=== PATIENT | female | born 1960 | race Two or more races ===

== ENCOUNTER 2025-03-17 14:00 | Inpatient (IN) | payer OTHER, MEDICAID ==
[~2025-03-17] VITALS: Ht 156.2 cm; Wt 80.5 kg
--- NOTE | 2025-03-17 14:35 | ED.PDOC ---
HPI Comments 64 y/o F, with PMHx of HTN presents to the ED for CC of chest pain. Patient states, she has been experiencing non-radiating substernal chest pain with associated palpitations since 0645 this morning (03/17/25). Patient reports, that she just had a parathyroidectomy on 03/09/25 and is unsure if symptoms maybe related. Patient denies headache, dizziness, shortness of breath, cough, nausea, or vomiting. No other symptoms or modifying factors present at this time. Chief Complaint: Chest Pain Time Seen by MD: 14:25 Reviewed Notes: Nurses Notes, Medications, Allergies Allergies: Coded Allergies: NO KNOWN ALLERGIES (Unverified , 03/17/25) Information Source: Patient Mode of Arrival: Ambulatory Severity: Moderate Timing: Hours Duration: Since onset Prehospital treatment: None Location: Substernal Radiation: No Radiation Onset: At Rest Cardiac Risk Factors: HTN PE Risk Factors: None History of: None Modifying Factors: Nothing Associated Signs and Symptoms: Palpitations Past Medical History PAST MEDICAL HISTORY: HTN Surgical History: Hysterectomy (partial) PERITONEAL DIALYSIS REGISTERED NURSE History: Denies all PERITONEAL DIALYSIS REGISTERED NURSE Hx Family History Family History: Unknown Social History Smoker: Non-Smoker Alcohol: Denies ETOH Use Drugs: Denies Drug Use Lives In: Home Constitutional: denies: chills, diaphoresis, fatigue, fever, malaise, sweats, weakness, others EENTM: denies: blurred vision, double vision, ear bleeding, ear discharge, ear drainage, ear pain, ear ringing, eye pain, eye redness, hearing loss, mouth pain, mouth swelling, nasal discharge, nose bleeding, nose congestion, nose pain, photophobia, tearing, throat pain, throat swelling, voice changes, others Respiratory: denies: cough, hemoptysis, orthopnea, SOB at rest, shortness of breath, SOB with excertion, stridor, wheezing, others Cardiovascular: reports: chest pain, palpitations; denies: dizzy spells, diaphoresis, Dyspnea on exertion, edema, irregular heart beat, left arm pain, lightheadedness, PND, syncope, others Gastrointestinal: denies: abdomen distended, abdominal pain, blood streaked ld wels, constipated, diarrhea, dysphagia, difficulty swallowing, hematemesis, melena, nausea, poor appetite, poor fluid intake, rectal bleeding, rectal pain, vomiting, others Genitourinary: denies: abnormal vagina bleeding, burning, dyspareunia, dysuria, flank pain, frequency, hematuria, incontinence, pain, , vagina discharge, urgency, others Neurological: denies: dizziness, fainting, headache, left sided numbness, left sided weakness, numbness, paresthesia, pre-existing deficit, right sided numbness, right sided weakness, seizure, speech problems, tingling, tremors, weakness, others Musculoskeletal: denies: back pain, gout, joint pain, joint swelling, muscle pain, muscle stiffness, neck pain, others Integumetry: denies: bruises, change in color, change in hair/nails, dryness, laceration, lesions, lumps, rash, wounds, others Allergic/Immunocompromised: denies: Difficulty Healing, Frequent Infections, Hives, Itching, others Hematologic/Lymphatic: denies: anemia, blood clots, easy bleeding, easy bruis ing, swollen glands, others Endocrine: denies: excessive hunger, excessive sweating, excessive thirst, exc essive urination, flushing, intolerance to cold, intolerance to heat, unexplained weight gain, unexplained weight loss, others Psychiatric: denies: anxiety, bipolar disorder, depression, hopeless, panic disorder, schizophrenia, sleepless, suicidal, others All Other Systems: Reviewed and Negative Physical Exam General Appearance: Moderate Distress HEENT: Normal ENT Inspection, Pharynx Normal, TMs Normal Neck: Full Range of Motion, Non-Tender, Normal, Normal Inspection Respiratory: Chest Non-Tender, Lungs Clear, No Accessory Muscle Use, No Respiratory Distress, Normal Breath Sounds Cardiovascular: No Edema, No JVD, No Murmur, No Gallop, Normal Peripheral Pulses, Regular Rate/Rhythm Breast Exam: Deferred Gastrointestinal: No Organomegaly, Non Tender, No Pulsatile Mass, Normal Bowel Sounds, Soft Genitalia: Deferred Pelvic: Deferred Rectal: Deferred Extremities: No calf tenderness, Normal capillary refill, Normal inspection, Normal range of motion, Non-tender, No pedal edema Musculoskeletal : Apperance: Normal Neurologic: Alert, last model maker II-XII nml as Tested, No Motor Deficits, Normal Affect, Normal Mood, No Sensory Deficits Cerebellar Function: Normal Reflexes: Normal Skin: Dry, Normal Color, Warm Peripheral Pulses: 3+ Radial (R), 3+ Radial (L) Lymphatic: No Adenopathy EKG EKG : Pulse Rate (adult): 70 [place]: Normal Cardiac Rhythm: NSR Block: None Hypertrophy: None ST: Normal Was a procedure done? Was a procedure done?: No CP Differential Dx Differential Diagnosis: A-fib, A-Flutter, Angina, Anxiety / Panic Attack, Atrial Dysrhythmia, Electrolyte Disorder Differential Diagnosis: HTN Essential, HTN Accelerated Differential Diagnosis: Angina, Chest Wall Pain, Costochondritis X-Ray, Labs, Meds, VS Vital Signs Date Time Temp Pulse Resp B/P (MAP) Pulse Ox O2 Delivery O2 Flow Rate FiO2 03/17/25 14:42 70 03/17/25 14:09 70 03/17/25 14:01 98.8 80 16 127/73 97 98.8 Lab Test 03/17/25 14:32 Range/Units White Blood Count 10.2 4.4-10.8 10^3/uL Red Blood Count 4.43 4.0-5.20 10^6/uL Hemoglobin 13.9 12.2-16.2 g/dL Hematocrit 40.5 36.0-46.0 % Mean Corpuscular Volume 91.4 80.0-100.0 fL Mean Corpuscular Hemoglobin 31.3 28.0-32.0 pg Mean Corpuscular Hemoglobin Concent 34.3 32.0-36.0 g/dL Red Cell Distribution Width 12.9 11.8-14.3 % Platelet Count 290 140-450 10^3/uL Mean Platelet Volume 7.7 6.9-10.8 fL Neutrophils (%) (Auto) 76.8 37.0-80.0 % Lymphocytes (%) (Auto) 16.9 10.0-50.0 % Monocytes (%) (Auto) 3.4 0.0-12.0 % Eosinophils (%) (Auto) 2.0 0.0-7.0 % Basophils (%) (Auto) 0.9 0.0-2.0 % Neutrophils # (Auto) 7.8 1.6-8.6 10 ^3/uL Lymphocytes # (Auto) 1.7 0.4-5.4 10 ^3/uL Monocytes # (Auto) 0.3 0-1.3 10 ^3/uL Eosinophils # (Auto) 0.2 0-0.8 10 ^3/uL Basophils # (Auto) 0.1 0-0.2 10 ^3/uL Nucleated Red Blood Cells 0.0 % Sodium Level 141 136-145 mmol/L Potassium Level 3.9 3.5-5.1 mmol/L Chloride Level 105 98-107 mmol/L Carbon Dioxide Level 27 20-31 mmol/L Anion Gap 9 5-15 Blood Urea Nitrogen 14 9-23 mg/dL Creatinine 0.58 0.550-1.02 mg/dL Glomerular Filtration Rate Calc 100 >90 mL/min BUN/Creatinine Ratio 24.1 H 10.0-20.0 Serum Glucose 90 74-106 mg/dL Calcium Level 9.6 8.7-10.4 mg/dL Troponin I High Sensitivity < 3 L </=34 ng/L Patient alert. Complaining of chest pain. Vitals stable. Answering questions. Cardiac marker within normal limits. EKG reviewed does not show any acute changes. WBC within normal limits. Hemoglobin within normal limits. Was given aspirin. Was given nitro. Explained to the patient. Continue monitoring. Continues to have chest pain. Possibly need stress test. Time of 1ST Reevaluation: 14:55 Reevaluation 1ST: Unchanged Patient Education/Counseling: Diagnosis, Treatment Family Education/Counseling: No Family Present SEPSIS Sepsis Screen Date sepsis recognized/suspect: Mar 17, 2025 Time Sepsis recognized/suspect: 1402 Recent Procedure: No On Antibiotic Therapy: No Respiratory Rate >20: No Heart Rate >90: No Temp<36 C (96.8 F) or >38.3 C: No SBP <90 or MAP <65 mmHG: No New Acute Mental Status Change: No Is the patient on CPAP, BIPAP,: No Physician Orders Electrocardigram (03/17/25 14:04) Troponin-I Hs (03/17/25 15:04) Troponin-I Hs (03/17/25 17:04) Electrocardigram (03/17/25 17:04) Urinalysis (03/17/25 14:22) Vital Signs Date Time Temp Pulse Resp B/P (MAP) Pulse Ox O2 Delivery O2 Flow Rate FiO2 03/17/25 14:42 70 03/17/25 14:09 70 03/17/25 14:01 98.8 80 16 127/73 97 98.8 Laboratory Tests Test 03/17/25 14:32 White Blood Count 10.2 10^3/uL (4.4-10.8) Departure 1 Departure Time of Disposition: 15:32 Impression: Primary Impression: Chest pain of unknown etiology Disposition: ADMITTED INPATIENT Admit to: Med Surg Condition: Guarded Critical Care Note Critical Care Time?: No Stability Stability form required: No Heart Score Heart Score: Heart Score Response (Comments) Value History Slightly Suspicious 0 EKG Normal 0 Age >65 2 Risk Factors >3 or Hx ASHD 2 Troponin Normal limit 0 Total 4 I personally scribed for JERICHO MILLAN MD ([email or web address]) on 03/17/25 at 14:35. Electronically submitted by Cindy Vivar ([employer]). I personally scribed for JERICHO MILLAN MD ([email or web address]) on 03/17/25 at 14:40. Electronically submitted by Cindy Vivar ([employer]). I personally scribed for JERICHO MILLAN MD ([email or web address]) on 03/17/25 at 14:42. Electronically submitted by Cindy Vivar ([employer]). JERICHO MILLAN MD Mar 17, 2025 14:35
[2025-03-17 14:49] LABS: Hematocrit 40.5 % (36.0-46.0); Hemoglobin 13.9 g/dL (12.2-16.2); Mean Corpuscular Hemoglobin 31.3 pg (28.0-32.0); Mean Corpuscular Volume 91.4 fL (80.0-100.0); Nucleated Red Blood Cells % 0.0 %
[2025-03-17 14:55] LABS: Chloride 105 mmol/L (98-107); Potassium 3.9 mmol/L (3.5-5.1); Sodium 141 mmol/L (136-145)
[2025-03-17 14:56] LABS: Anion Gap 9 (5-15); Calcium 9.6 mg/dL (8.7-10.4); Carbon Dioxide 27 mmol/L (20-31)
[2025-03-17 15:01] LABS: BUN/Creatinine Ratio 24.1 (10.0-20.0); Blood Urea Nitrogen 14 mg/dL (9-23); Glucose 90 mg/dL (74-106)
[2025-03-17] MEDS: NITROGLYCERIN 0.4 MG SL TAB SL ONE (17:46)
[2025-03-17] MEDS ORDERED: NITROGLYCERIN 0.4 MG SL TAB SL PRN (21:45)
--- NOTE | 2025-03-17 21:56 | DVHHPRES ---
History of Present Illness Resident Creating Document: ZOIE GOMEZ RESIDENT History of Present Illness Laurel Whitney is a 64 yo female, with past medical history of HTN and hypoparathyroidism. The patient presented to the ED with chief complaint of 1 day of chest pain, substernal, pressure and stabbing like, 5-6/10, radiating to the left shoulder, associated with dizziness and palpitations. This is the first time episode. The patient reports, that she had a parathyroidectomy surgery on 03/04. Patient denies headache, shortness of breath, cough, nausea, vomiting, leg swelling or other symptoms. In the ED patient was given aspirin and nitro with improvement of chest pain. Patient will be admitted for further evaluation. Cardiovascular: HTN Musculoskeletal: Other (Osteoporosis) Past Surgical History: , Other (Parathyroidectomy ) Family History: CAD, CVA, Hyperlipidemia, Hypertension Smoke: No Drugs: None Lives: with Family Review of Systems Constitutional: No: Fever, Chills, Sweats, Weakness, Malaise, Other Eyes: No: Pain, Vision change, Conjunctivae inflammation, Eyelid inflammation, Other, Redness ENT: No: Ear pain, Ear discharge, Nose pain, Nose discharge, Nose congestion, Mouth pain, Mouth swelling, Throat pain, Throat swelling, Other Respiratory: No: Cough, Dry, Shortness of breath, SOB with excertion, Wheezing, Hemoptysis, Pleuritic Pain, Sputum, Wheezing, Other Cardiovascular: Chest Pain, Palpitations; No: Orthopnea, Paroxysmal Noc. Dyspnea, Edema, Lt Headedness, Other Gastrointestinal: No: Nausea, Vomiting, Abdominal Pain, Diarrhea, Constipation, Melena, Hematochezia, Other Genitourinary: No Dysuria, No Frequency, No Incontinence, No Hematuria, No Retention, No Other Musculoskeletal: No: other, neck pain, shoulder pain, arm pain, back pain, hand pain, leg pain, foot pain Skin: No: Rash, Lesions, Jaundice, Bruising, Other Neurological: No: Weakness, Numbness, Incoordination, Change in speech, Confusion, Seizures, Other Allergies: Coded Allergies: NO KNOWN ALLERGIES (Unverified , 03/17/25) Medications Current Medications Medications Dose Ordered Sig/Cece Route Start Time Stop Time Status Last Admin Dose Admin Morphine Sulfate 2 mg Q30M PRN IV 03/17/25 21:45 UNV Nitroglycerin 0.4 mg Q5MINP PRN SL 03/17/25 21:45 UNV Pantoprazole Sodium 40 mg DAILY PO 03/18/25 10:00 UNV Exam Vital Signs Vital Signs Date Time Temp Pulse Resp B/P (MAP) Pulse Ox O2 Delivery O2 Flow Rate FiO2 03/17/25 21:32 98.4 76 16 134/69 (90) 97 98.4 03/17/25 17:45 Room Air* 0 21 General Appearance: Alert, Oriented X3, Cooperative, No acute distress HEENT: Atraumatic, Mucous membr. moist/pink Respiratory: Clear to auscultation, Normal air movement Cardiovascular: Regular rate, Normal S1, Normal S2, No murmurs Abdominal: Normal bowel sounds, Soft, No tenderness, No hepatospenomegaly, No masses Extremities: No clubbing, No cyanosis, No edema, Normal pulses, No tenderness/swelling Skin: No rashes, No breakdown, No significant lesion Neuro: Normal gait, Normal speech, Strength at 5/5 X4 ext, Normal tone, Sensation intact Psych/Mental Status: Mental status NL, Mood NL Labs/Xrays Labs Test 03/17/25 15:47 03/17/25 14:32 Range/Units Troponin I High Sensitivity < 3 L </=34 ng/L White Blood Count 10.2 4.4-10.8 10^3/uL Red Blood Count 4.43 4.0-5.20 10^6/uL Hemoglobin 13.9 12.2-16.2 g/dL Hematocrit 40.5 36.0-46.0 % Mean Corpuscular Volume 91.4 80.0-100.0 fL Mean Corpuscular Hemoglobin 31.3 28.0-32.0 pg Mean Corpuscular Hemoglobin Concent 34.3 32.0-36.0 g/dL Red Cell Distribution Width 12.9 11.8-14.3 % Platelet Count 290 140-450 10^3/uL Mean Platelet Volume 7.7 6.9-10.8 fL Neutrophils (%) (Auto) 76.8 37.0-80.0 % Lymphocytes (%) (Auto) 16.9 10.0-50.0 % Monocytes (%) (Auto) 3.4 0.0-12.0 % Eosinophils (%) (Auto) 2.0 0.0-7.0 % Basophils (%) (Auto) 0.9 0.0-2.0 % Neutrophils # (Auto) 7.8 1.6-8.6 10 ^3/uL Lymphocytes # (Auto) 1.7 0.4-5.4 10 ^3/uL Monocytes # (Auto) 0.3 0-1.3 10 ^3/uL Eosinophils # (Auto) 0.2 0-0.8 10 ^3/uL Basophils # (Auto) 0.1 0-0.2 10 ^3/uL Nucleated Red Blood Cells 0.0 % Sodium Level 141 136-145 mmol/L Potassium Level 3.9 3.5-5.1 mmol/L Chloride Level 105 98-107 mmol/L Carbon Dioxide Level 27 20-31 mmol/L Anion Gap 9 5-15 Blood Urea Nitrogen 14 9-23 mg/dL Creatinine 0.58 0.550-1.02 mg/dL Glomerular Filtration Rate Calc 100 >90 mL/min BUN/Creatinine Ratio 24.1 H 10.0-20.0 Serum Glucose 90 74-106 mg/dL Calcium Level 9.6 8.7-10.4 mg/dL SEPSIS Sepsis Screen Date sepsis recognized/suspect: Mar 17, 2025 Time Sepsis recognized/suspect: 1744 Recent Procedure: Yes On Antibiotic Therapy: No Respiratory Rate >20: No Heart Rate >90: No Temp<36 C (96.8 F) or >38.3 C: No SBP <90 or MAP <65 mmHG: No New Acute Mental Status Change: No Is the patient on CPAP, BIPAP,: No Physician Orders Electrocardigram (03/17/25 14:04) Electrocardigram (03/17/25 17:04) Urinalysis (03/17/25 14:22) Admit (03/17/25 21:45) Code Status (03/17/25 21:45) Vital Signs .PER UNIT PROTOCOL (03/17/25 21:45) Review Orders With Adm.Md (03/17/25 21:45) Bedrest With Bathroom Privileg (03/17/25 21:45) Notify Md Of Changes From Base (03/17/25 21:45) Advance Directive (03/17/25 21:45) Echo 2d Mode Cardiac Dop (03/17/25 21:45) Patient Condition (03/17/25 21:45) Allergies (03/17/25 21:45) Morphine Sulfate Injection (03/17/25 21:45) Stat Ekg For Chest Pain (03/17/25 21:45) Notify Of Changes From Base (03/17/25 21:45) Fulfillment Associate For 24 Hours (03/17/25 21:45) Rhythm Strips Once Every Shift (03/17/25 21:45) Nitroglycerin Sublingual (Ntrostat Subli (03/17/25 21:45) Pantoprazole Tablet (Protonix Tablet) (03/18/25 10:00) Complete Blood Count (03/18/25 04:00) Comprehensive Metabolic Panel (03/18/25 04:00) * Cardiology Consult (03/17/25 21:45) Cardiac Diet-2gna,Lofat,Lochol (03/18/25 Breakfast) Drug Screen (03/17/25 21:45) Urinalysis (03/17/25 21:45) B-Type Natriuretic Peptide (03/17/25 21:45) Thyroid Stimulating Hormone (03/17/25 21:45) Vital Signs Date Time Temp Pulse Resp B/P (MAP) Pulse Ox O2 Delivery O2 Flow Rate FiO2 03/17/25 21:32 98.4 76 16 134/69 (90) 97 98.4 03/17/25 17:46 135/91 03/17/25 17:45 98.3 81 18 135/91 (106) 98 98.3 03/17/25 17:45 Room Air* 0 21 03/17/25 14:42 70 03/17/25 14:09 70 03/17/25 14:01 98.8 80 16 127/73 97 98.8 Laboratory Tests Test 03/17/25 14:32 White Blood Count 10.2 10^3/uL (4.4-10.8) Medications Medications Dose Ordered Sig/Cece Route Start Time Stop Time Status Last Admin Dose Admin Aspirin 325 mg ONCE ONCE PO 03/17/25 14:30 03/17/25 14:31 DC 03/17/25 17:46 325 MG Nitroglycerin 0.4 mg ONCE ONCE SL 03/17/25 14:30 03/17/25 14:31 DC 03/17/25 17:46 0.4 MG Assessment/Plan Assessment/Plan #Chest pain, rule out ACS #Rule out paroxysmal A-Fib Aspirin 325mg po Nitroglycerin 04.mg Morphine 2mg IV EKG BNP Troponins ECHO Cardiology consult #Hypoparathyroidism #Status post parathyroidectomy Tums Vit D #Obesity Life style modification counseling Cardiac diet DVT prophylaxis-Demabulanting patient PUD prophylaxis Protonic Goals of care discussed with the patient > 35 min. Discussed plan of care with Dr. Felix Code status: Full code PCP: Dr. Es Ovalle Plan discussed with: Patient, The patients agrees with the admission plan. Plan discussed with: Patient My Orders Orders - ZOIE GOMEZ RESIDENT Procedure Category Date Status Time Admit ADMIT 03/17/25 Transmitted 21:45 Code Status CODE 03/17/25 Transmitted 21:45 Vital Signs [facility] 03/17/25 In Process 21:45 Review Orders With [facility] 03/17/25 In Process Adm.Md 21:45 Bedrest With Bathroom [facility] 03/17/25 In Process Privileg 21:45 Notify Md Of Changes [facility] 03/17/25 In Process From Base 21:45 Advance Directive [facility] 03/17/25 In Process 21:45 Echo 2d Mode Cardiac US 03/17/25 Logged DOP 21:45 Patient Condition ORDERS 03/17/25 Transmitted 21:45 Allergies [facility] 03/17/25 In Process 21:45 Morphine Sulfate [facility] 03/17/25 Logged Injection 21:45 Stat Ekg For Chest [facility] 03/17/25 In Process Pain 21:45 Notify Of Changes [facility] 03/17/25 In Process From Base 21:45 Fulfillment Associate For [facility] 03/17/25 In Process 24 Hours 21:45 Rhythm Strips Once [facility] 03/17/25 In Process Every Shift 21:45 Nitroglycerin PHA 03/17/25 Logged Sublingual (Ntrostat 21:45 Pantoprazole Tablet PHA 03/18/25 Logged (Protonix Tablet) 10:00 Complete Blood Count LAB 03/18/25 Verified 04:00 Comprehensive LAB 03/18/25 Verified Metabolic Panel 04:00 * Cardiology Consult CONS 03/17/25 Transmitted 21:45 Cardiac DIET 03/18/25 Transmitted Diet-2gna,Lofat,Lochol Breakfast Drug Screen LAB 03/17/25 Logged 21:45 Urinalysis LAB 03/17/25 Logged 21:45 B-Type Natriuretic LAB 03/17/25 Logged Peptide 21:45 Thyroid Stimulating LAB 03/17/25 Logged Hormone 21:45 Common Visit Codes: 64405-[id number] INP/OBS CARE (HIGH) Secondary Visit Codes: 04739-[id number] CARE PLAN 30 MINUTES ZOIE GOMEZ RESIDENT Mar 17, 2025 21:56
[2025-03-18] MEDS ORDERED: CALC0.5C PO (03:06)
[2025-03-18] MEDS ORDERED: CHOL20002 PO (03:06)
[2025-03-18] MEDS ORDERED: LOSA-535 PO (03:06)
[2025-03-18 05:10] LABS: Hematocrit 38.8 % (36.0-46.0); Hemoglobin 13.2 g/dL (12.2-16.2); Mean Corpuscular Hemoglobin 30.9 pg (28.0-32.0); Mean Corpuscular Volume 91.1 fL (80.0-100.0); Nucleated Red Blood Cells % 0.0 %
[2025-03-18 05:28] LABS: Alanine Aminotransferase 16 U/L (7-40); Albumin 4.5 g/dL (3.2-4.8); Alkaline Phosphatase 99 U/L (46-116); Anion Gap 12 (5-15); BUN/Creatinine Ratio 37.3 (10.0-20.0); Blood Urea Nitrogen 19 mg/dL (9-23); Calcium 8.9 mg/dL (8.7-10.4); Carbon Dioxide 24 mmol/L (20-31); Chloride 106 mmol/L (98-107); Glucose 78 mg/dL (74-106); Sodium 142 mmol/L (136-145); Total Protein 6.8 g/dL (5.7-8.2)
[2025-03-18 05:29] LABS: Bilirubin, Total 0.4 mg/dL (0.2-1.0)
[2025-03-18 05:31] LABS: Potassium 3.4 mmol/L (3.5-5.1)
[2025-03-18] MEDS: POTASSIUM EFFERVESENT TAB 25 MEQ GT ONE (05:56)
[2025-03-18 06:17] VITALS: BP 122/66; PULSE 78; RESP 18; TEMP 98; O2SAT 98
--- NOTE | 2025-03-18 09:04 | DVH ---
EXAM: XY CHEST PORTABLE Indication: chest pain Technique: Single frontal view of the chest was obtained Comparison: None FINDINGS: Lines and Tubes: None Lungs: No focal consolidation. Pleura: No effusion. No pneumothorax. Cardiomediastinal contours: Unremarkable Bones: No acute osseous abnormality. IMPRESSION: No acute cardiopulmonary disease.
[2025-03-18] MEDS: CALCIUM CARB 500 MG CHEW TAB PO SCH (10:00)
[2025-03-18] MEDS: PANTOPRAZOLE 40 MG TAB PO SCH (10:00)
--- NOTE | 2025-03-18 11:09 | DVHINCON2 ---
Date Seen: Mar 18, 2025 Referring Physician MD Vernon Reason for Consultation Palpitations, chest pain History of Present Illness This is a pleasant 64-year-old female who presented to the emergency room with a chief complaint of chest pain since 03/14/2025. Describes her chest pain as sub sternal, sharp in nature and as electrical shocks, intermittent, radiating to bilateral hands and feet as a numbing sensation, non-provoked, and associated with some palpitations. The patient underwent a recent partial parathyroidectomy at [facility] on 03/03/2025 for which she reported her symptoms to the surgeon who suggested to take calcium and magnesium and to attend the nearest ED in the setting of continuation of symptoms. She underwent a 12 lead electrocardiogram revealing a normal sinus rhythm without evidence of ST-T wave changes. Serial troponin levels are negative. Significant medical history includes hypertension, controlled diabetes mellitus after gastric sleeve surgery, status post partial parathyroidectomy, and obesity. Past Medical History Past medical history reviewed. No other significant than mentioned above. Past Surgical History Partial parathyroidectomy, 03/03/2025 Gastric sleeve Partial hysterectomy Family History: FH: glaucoma G8 MOTHER, , Age: 60 years and older FH: heart attack G8 MOTHER, , Age: 60 years and older FH: heart disease G8 MOTHER, , Age: 60 years and older FH: lung cancer G8 FATHER, , Age: 60 years and older FH: rheumatoid arthritis G8 MOTHER, , Age: 60 years and older Hypertension G8 MOTHER, , Age: 60 years and older Family History Family history reviewed. Reports mother with ME and no invasive cardiac interventions. Reports brother with congestive heart failure. Social History Denies the use of illicit drugs, alcohol, or tobacco use. Allergies: Coded Allergies: NO KNOWN ALLERGIES (Unverified , 03/17/25) Home Meds Reported Medications Calcitriol (Calcitriol) 0.5 Mcg Cap, 1 CAP PO DAILY 03/18/25 Cholecalciferol (VITAMIN D3) 2,000 Unit Tab, 1 CAP PO DAILY 03/18/25 Losartan Potassium (Losartan Potassium) 100 Mg Tab, 1 TAB PO DAILY 03/18/25 Home Meds Home medications reviewed. Current Medications Current Medications Medications (Trade) Dose Ordered Sig/Cece Route PRN Reason Start Time Stop Time Status Last Admin Morphine Sulfate 2 mg Q30M PRN IV FOR CHEST PAIN 03/17/25 21:45 Nitroglycerin (Ntrostat Sublingual) 0.4 mg Q5MINP PRN SL FOR CHEST PAIN 03/17/25 21:45 Pantoprazole Sodium (Protonix Tablet) 40 mg DAILY PO 03/18/25 10:00 03/18/25 10:00 Calcium Carbonate (Tums) 500 mg DAILY PO 03/18/25 10:00 03/18/25 10:00 Review of Systems Constitutional: No symptom reported Ears, Nose, & Throat: No symptom reported Eyes: No symptom reported Neurological: No symptoms reported Pulmonary/Respiratory: No symptom reported Cardiovascular: Chest pain Gastrointestinal: No symptom reported Genitourinary: No symptom reported Musculoskeletal: No symptom reported Skin: No symptom reported Psychiatric: No symptom reported Endocrine: No symptom reported Hemotologic/Lymphatic: No symptom reported Vital Signs Vital Signs Date Time Temp Pulse Resp B/P (MAP) Pulse Ox O2 Delivery O2 Flow Rate FiO2 03/18/25 06:17 98.0 78 18 122/66 (84) 98 98.0 03/17/25 17:45 Room Air* 0 21 Physical Exam General Appearance: Cooperative. Well developed. Obese. In no acute distress Head Exam: Normal inspection Neck Exam: Normal inspection. Non-tender. Normal alignment Pulmonary/Respiratory: Chest non-tender. Clear bilateral breath sounds Cardiovascular/Chest: Regular rate and rhythm. S1, S2. NSR. No murmurs. No JVD. Peripheral Pulses: 2+ Radial (R). 2+ Radial (L). 2+ Pedal (R). 2+ Pedal (L) Abdominal Exam: Normal bowel sounds. Soft. Nontender. No hepatospenomegaly. No masses Ankle Exam: Negative ankle edema Lower extremities: Negative lower extremity edema Neuro/Mental Status: A&O x4. Coherent Thoughts/Psych: Normal thought pattern. Anxious Appearance: In no acute distress Skin Exam: Normal inspection. Normal color. Warm. Dry Labs/Diagnostic Data Labs Test 03/18/25 04:06 03/17/25 15:47 03/17/25 14:32 Range/Units White Blood Count 8.6 4.4-10.8 10^3/uL Red Blood Count 4.26 4.0-5.20 10^6/uL Hemoglobin 13.2 12.2-16.2 g/dL Hematocrit 38.8 36.0-46.0 % Mean Corpuscular Volume 91.1 80.0-100.0 fL Mean Corpuscular Hemoglobin 30.9 28.0-32.0 pg Mean Corpuscular Hemoglobin Concent 33.9 32.0-36.0 g/dL Red Cell Distribution Width 13.1 11.8-14.3 % Platelet Count 224 140-450 10^3/uL Mean Platelet Volume 8.7 6.9-10.8 fL Neutrophils (%) (Auto) 66.5 37.0-80.0 % Lymphocytes (%) (Auto) 22.4 10.0-50.0 % Monocytes (%) (Auto) 6.7 0.0-12.0 % Eosinophils (%) (Auto) 3.9 0.0-7.0 % Basophils (%) (Auto) 0.5 0.0-2.0 % Neutrophils # (Auto) 5.7 1.6-8.6 10 ^3/uL Lymphocytes # (Auto) 1.9 0.4-5.4 10 ^3/uL Monocytes # (Auto) 0.6 0-1.3 10 ^3/uL Eosinophils # (Auto) 0.3 0-0.8 10 ^3/uL Basophils # (Auto) 0 0-0.2 10 ^3/uL Nucleated Red Blood Cells 0.0 % Sodium Level 142 136-145 mmol/L Potassium Level 3.4 L 3.5-5.1 mmol/L Chloride Level 106 98-107 mmol/L Carbon Dioxide Level 24 20-31 mmol/L Anion Gap 12 5-15 Blood Urea Nitrogen 19 9-23 mg/dL Creatinine 0.51 L 0.550-1.02 mg/dL Glomerular Filtration Rate Calc 103 >90 mL/min BUN/Creatinine Ratio 37.3 H 10.0-20.0 Serum Glucose 78 74-106 mg/dL Calcium Level 8.9 8.7-10.4 mg/dL Total Bilirubin 0.4 0.2-1.0 mg/dL Aspartate Amino Transferase (AST) 16 13-40 U/L Alanine Aminotransferase (ALT) 16 7-40 U/L Alkaline Phosphatase 99 46-116 U/L Total Protein 6.8 5.7-8.2 g/dL Albumin 4.5 3.2-4.8 g/dL Troponin I High Sensitivity < 3 L </=34 ng/L Thyroid Stimulating Hormone (TSH) 0.72 0.55-4.78 uIU/mL B-Type Natriuretic Peptide 24.19 0-100 pg/mL Assessment Noncardiac chest pain Rule out structural heart disease Palpitations rule out tachyarrhythmias Status post recent partial parathyroidectomy Hypertension Hypokalemia Obesity Plan/Recommendation (Dr. Romero) The patient presents with noncardiac chest pain, likely anxiety vs musculoskeletal. In the setting of an unremarkable echocardiogram, there is no further cardiac workup indicated at this time. Given reported palpitations, the patient could benefit from an outpatient event monitor and stress test if deemed necessary. Replete electrolytes as necessary. Kindly call if in need to re- consult. Thank you for allowing us to participate in this patient's care. Please call if you have any questions or concerns. This medical document was created using an electronic medical record system with voice recognition software and computerized dictation system. Although this document has been carefully reviewed, there might still be some phonetic and typographical errors. Occasional wrong-word or ``sound-alike substitutions may have occurred due to the inherent limitations of voice recognition software. These areas are purely typographical due to imperfections of the software programs and do not reflect any compromise in the patient's medical care. Please read the chart carefully and recognize, using context, where these substitutions have occurred. Plan discussed with: Patient, Other NYHA Physical activity limitations: NA Date of Service: Mar 18, 2025 Billing Provider: SUN RAJAN Cardiology Common Codes: [id number] INP/OBS CARE (High) SUN RAJAN Mar 18, 2025 11:09
[2025-03-18] MEDS: ACETAMINOPHEN 325 MG TAB PO ONE (13:57)
[2025-03-18 14:35] LABS: Triglycerides 54 mg/dL (< 150)
[2025-03-18 14:38] LABS: Cholesterol 155 mg/dL (< 200); HDL Cholesterol 66 mg/dL (40-59)
--- NOTE | 2025-03-18 14:43 | DVHPNRES ---
Progress Note Date Seen: Mar 18, 2025 Resident Creating Document: SANJU SHEPHERD Medical Necessity Reason Pt with a Central, PICC or Fol: No Subjective Review of Systems This is 64 years old female with past medical history of hypertension, well- controlled diabetes mellitus, hyperparathyroidism to the ED with her 1st episode of chest pain, described as substernal, shock, electrical shock pain, rate 5- 6/10, radiating to the left shoulder, both hands and feet with numbness. The pain associated with dizziness and palpitations. She denies headache, shortness of breath, cough, nausea, vomiting, leg swelling, or other symptoms. Following her surgery, she reports her symptoms to the surgeon, who advised calcium and magnesium supplement and ED evaluation if symptom persisted. In the ED, she was given aspirin and nitroglycerin with improvement in chest pain. She underwent EKG and shows normal sinus rhythm, troponin level was negative. Calcium level was 8.9. Past medical history: HTN, Osteoporosis, DM, hyperparathyroidism Past Surgical History: , Other (Parathyroidectomy ) Family History: CAD, CVA, Hyperlipidemia, Hypertension Smoke: No Drugs: None Lives: with Family Review of Systems Constitutional: No: Fever, Chills, Sweats, Weakness, Malaise, Other Eyes: No: Pain, Vision change, Conjunctivae inflammation, Eyelid inflammation, Other, Redness ENT: No: Ear pain, Ear discharge, Nose pain, Nose discharge, Nose congestion, Mouth pain, Mouth swelling, Throat pain, Throat swelling, Other Respiratory: No: Cough, Dry, Shortness of breath, SOB with excertion, Wheezing, Hemoptysis, Pleuritic Pain, Sputum, Wheezing, Other Cardiovascular: Chest Pain, Palpitations; No: Orthopnea, Paroxysmal Noc. Dyspnea, Edema, Lt Headedness, Other Gastrointestinal: No: Nausea, Vomiting, Abdominal Pain, Diarrhea, Constipation, Melena, Hematochezia, Other Genitourinary: No Dysuria, No Frequency, No Incontinence, No Hematuria, No Retention, No Other Musculoskeletal: No: other, neck pain, shoulder pain, arm pain, back pain, hand pain, leg pain, foot pain Skin: No: Rash, Lesions, Jaundice, Bruising, Other Neurological: No: Weakness, Numbness, Incoordination, Change in speech, Confusion, Seizures, Other Allergies: Coded Allergies: NO KNOWN ALLERGIES (Unverified , 03/17/25) Objective vital signs Vital Sign Date Time Temp Pulse Resp B/P (MAP) Pulse Ox O2 Delivery O2 Flow Rate FiO2 03/18/25 06:17 98.0 78 18 122/66 (84) 98 98.0 03/17/25 17:45 Room Air* 0 21 medications Current Medications Medications Dose Ordered Sig/Cece Route Start Time Stop Time Status Last Admin Dose Admin Morphine Sulfate 2 mg Q30M PRN IV 03/17/25 21:45 Nitroglycerin 0.4 mg Q5MINP PRN SL 03/17/25 21:45 Pantoprazole Sodium 40 mg DAILY PO 03/18/25 10:00 03/18/25 10:00 40 MG Calcium Carbonate 500 mg DAILY PO 03/18/25 10:00 03/18/25 10:00 500 MG Examination General Appearance: Alert, Oriented X3, Cooperative, No acute distress HEENT: Atraumatic, Mucous membr. moist/pink Respiratory: Clear to auscultation, Normal air movement Cardiovascular: Palpitation, Regular rate, Normal S1, Normal S2, No murmurs Abdominal: Normal bowel sounds, Soft, No tenderness, No hepatospenomegaly, No masses Extremities: No clubbing, No cyanosis, No edema, Normal pulses, No tenderness/swelling Skin: No rashes, No breakdown, No significant lesion Neuro: Normal gait, Normal speech, Strength at 5/5 X4 ext, Normal tone, Sensation intact Psych/Mental Status: Mental status NL, Mood NL laboratory and microbiology Laboratory Tests 03/18/25 04:06 Test 03/18/25 04:06 Range/Units Serum Glucose 78 74-106 mg/dL Labs and/or images reviewed: Labs reviewed by me, Image(s) reviewed by me (RN) Problem List/Assessment/Plan Problem List/Assessment/Plan # Chest pain r/o ACS -Morphine -Nitroglycerin -Lipid panel -BNP -Troponins -Chest X-Ray- No acute cardiopulmonary disease. # Hx of Hyperparathyroidism s/p parathyroidectomy february 2025 -PTH -monitor Ca2+ -Calcium carbonate # Palpiration r/o arrihythmia -EKG- Normal sinus rhythm. Normal ECG -Echocardiogram PUD prophylaxis: protonix 40mg Goals of care: Full code, discussed for >16 minutes on 03/18/25 Plan discussed with patient Plan discussed with Dr. Vazquez Plan discussed with: Patient, Other (RN) My Orders My Orders Orders - SANJU SHEPHERD RESIDENT Procedure Category Date Status Time Thyroid Stimulating LAB 03/18/25 In Process Hormone 13:34 Complete Blood Count LAB 03/19/25 Verified 04:00 Basic Metabolic Panel LAB 03/19/25 Verified 04:00 Date of Service: Mar 18, 2025 Billing Provider: KAYLA VAZQUEZ MD Common Visit Codes: [id number] INP/OBS CARE(HIGH) Secondary Visit Codes: [id number] CARE PLAN 30 MINUTES SANJU SHEPHERD RESIDENT Mar 18, 2025 14:43 ANUP STONER RESIDENT Mar 18, 2025 17:22 KAYLA VAZQUEZ MD Mar 20, 2025 22:22
[2025-03-18 16:50] VITALS: BP 106/66; PULSE 69; TEMP 98.3; O2SAT 98
[2025-03-18 21:00] VITALS: BP 101/60; PULSE 69; RESP 19; TEMP 98; O2SAT 99
[2025-03-18 21:20] VITALS: BP 135/85; PULSE 68; RESP 17; TEMP 97.8; O2SAT 98
[2025-03-18] MEDS: MORPHINE SULFATE INJ 2 MG/ml SYRG IV PRN (21:43)
[2025-03-18 23:16] VITALS: PULSE 68; RESP 17; O2SAT 98
[2025-03-19] VITALS (8 sets, daily range): BP systolic 106–128; BP diastolic 70–82; PULSE 71–90; RESP 16–19; TEMP 97.6–98.8; O2SAT 96–98
[2025-03-19 08:11] LABS: Hematocrit 35.6 % (36.0-46.0); Hemoglobin 12.3 g/dL (12.2-16.2); Mean Corpuscular Hemoglobin 31.5 pg (28.0-32.0); Mean Corpuscular Volume 91.1 fL (80.0-100.0); Nucleated Red Blood Cells % 0.0 %
[2025-03-19 08:16] LABS: Chloride 105 mmol/L (98-107); Potassium 3.8 mmol/L (3.5-5.1); Sodium 142 mmol/L (136-145)
[2025-03-19 08:17] LABS: Anion Gap 9 (5-15); Carbon Dioxide 28 mmol/L (20-31)
[2025-03-19 08:22] LABS: BUN/Creatinine Ratio 20.0 (10.0-20.0); Blood Urea Nitrogen 11 mg/dL (9-23); Glucose 94 mg/dL (74-106)
[2025-03-19 08:26] LABS: Calcium 8.4 mg/dL (8.7-10.4)
--- NOTE | 2025-03-19 12:07 | DVHSR ---
APPROVED REPORT EXAM: Two-dimensional and M-mode echocardiogram with Doppler and color Doppler. Blood Pressure: 109/71 mmHg INDICATION Atrial Fibrillation RISK FACTORS Height: 5'2", Weight: 165 DIMENSIONS LVDd4.0 (3.8-5.7cm)LA (2D)3.3 (1.9-4.0cm)Aortic Root2.8 (2.0-3.7cm) LVDs2.7 (2.5-4.0cm)LA (MM) (1.9-4.0cm)Aortic Cusp Exc1.8 (1.5-2.0cm) EF (%) 60.0 (55-70%)Rt. Atrium3.2 (1.9-4.0cm)Asc. Aorta cm IVSd1.1 (0.7-1.1cm)RV (D)3.1 (1.8-2.4cm) PWd1.1 (0.7-1.1cm) Mitral Valve MitralMitral Stenosis E wave0.57m/sMV Mean GR.mmHg A wave0.92m/sMV Peak GR.mmHg E/A ratio0.62D MVAcm2 DECEL [id number] 1/2 Timems Aortic Valve Aortic ValveAortic Stenosis V11.18m/Kathy Mean GR.5mmHg V21.68m/Kathy Peak GR.11mmHg LVOT Diameter2.0 (1.8-2.4cm)Doppler AVA2.21cm2 Pulmonic Valve V21.14m/s Tricuspid Valve TR Velocity2.48m/s [id number] Conclusion lvef 65% mild LVH grade 1 diastolic dysfunction
[2025-03-19] MEDS: CALCIUM CARB 500 MG CHEW TAB PO ONE (17:42)
[2025-03-19] MEDS: ACETAMINOPHEN 325 MG TAB PO PRN (17:42)
--- NOTE | 2025-03-19 18:04 | DVHPN2 ---
Subjective Overnight events noted. Patient has recently had a partial parathyroidectomy at [facility], currently on calcitriol and calcium supplements. Patient's initially presented to hospital with chest pain and palpitation. Changes from previous H/P or p: No Changes Eyes: No Pain, No Vision change, No Conjunctivae inflammation, No Eyelid inflammation, No Other, No Redness ENT: No Ear pain, No Ear discharge, No Nose pain, No Nose discharge, No Nose congestion, No Mouth pain, No Mouth swelling, No Throat pain, No Throat swelling, No Other Cardiovascular: Chest Pain, Palpitations; No Orthopnea, No Paroxysmal Noc. Dyspnea, No Edema, No Lt Headedness, No Other Respiratory: No Cough, No Dry, No Shortness of breath, No SOB with excertion, No Wheezing, No Hemoptysis, No Pleuritic Pain, No Sputum, No Other Gastrointestinal: No Nausea, No Vomiting, No Abdominal Pain, No Diarrhea, No Constipation, No Melena, No Hematochezia, No Other Genitourinary: No Dysuria, No Frequency, No Incontinence, No Hematuria, No Retention, No Other Musculoskeletal: No other, No neck pain, No shoulder pain, No arm pain, No back pain, No hand pain, No leg pain, No foot pain Skin: No Rash, No Lesions, No Jaundice, No Bruising, No Other Objective Vitals Vital Signs Date Time Temp Pulse Resp B/P (MAP) Pulse Ox O2 Delivery O2 Flow Rate FiO2 03/19/25 13:00 98.1 71 18 128/82 (97) 98 98.1 03/19/25 08:10 Room Air* 0 21 Intake/Output Intake and Output 03/19/25 07:00 Intake Total 450 ml Balance 450 ml Intake Oral 450 ml # Voids 1 Exam HEENT pupils are reactive Neck is supple CV is S1-S2 regular rate and rhythm Diminished breath sounds bases GI positive bowel sound Extremity no edema [employer]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 Medications Current Medications Medications Dose Ordered Sig/Cece Route Start Time Stop Time Status Last Admin Dose Admin Morphine Sulfate 2 mg Q30M PRN IV 03/17/25 21:45 03/18/25 21:43 2 MG Nitroglycerin 0.4 mg Q5MINP PRN SL 03/17/25 21:45 Pantoprazole Sodium 40 mg DAILY PO 03/18/25 10:00 03/19/25 10:28 40 MG Calcium Carbonate 1,000 mg DAILY PO 03/20/25 10:00 Acetaminophen 650 mg Q6HP PRN PO 03/19/25 16:00 03/19/25 17:42 650 MG Laboratory Results Laboratory Tests 03/19/25 07:00 Chemistry Test 03/19/25 07:00 Calcium Level 8.4 mg/dL (8.7-10.4) L Assessment/Plan Assessment/Plan 54-year-old female with a known history of hypertension, recent history of partial parathyroidectomy presented to the hospital with chest pain and palpitation found to have 1. Chest pain and palpitation likely noncardiac chest pain, outpatient event monitor as per Cardiology 2. Hypocalcemia with a recent history of partial parathyroidectomy, resume home dose of calcitriol as well as calcium supplements 3. Hypertension -recheck CMP, resume home medications -Discharge plan. Plan discussed with: Patient My Orders Orders - MORENITA CASTANON MD Procedure Category Date Status Time Calcium Carbonate PHA 03/20/25 In Process (Tums) 10:00 Acetaminophen Tablet PHA 03/19/25 In Process (Tylenol Tablet) 16:00 Comprehensive LAB 03/20/25 Verified Metabolic Panel 04:00 (Nf) Calcitriol PHA 03/20/25 Verified 10:00 (Nf) Cholecalciferol PHA 03/20/25 Verified (Vitamin D3) 10:00 (Nf) Losartan PHA 03/20/25 Verified Potassium 10:00 Date of Service: Mar 19, 2025 Billing Provider: MORENITA CASTANON MD Common Visit Codes: [id number] INP/OBS CARE(MOD) MORENITA CASTANON MD Mar 19, 2025 18:04
[2025-03-20 01:00] VITALS: BP 123/81; PULSE 76; RESP 18; TEMP 98; O2SAT 97
[2025-03-20 05:00] VITALS: BP 120/75; PULSE 71; RESP 18; TEMP 98; O2SAT 96
[2025-03-20 07:11] LABS: Alanine Aminotransferase 10 U/L (7-40); Albumin 4.4 g/dL (3.2-4.8); Alkaline Phosphatase 92 U/L (46-116); Anion Gap 7 (5-15); BUN/Creatinine Ratio 17.3 (10.0-20.0); Blood Urea Nitrogen 9 mg/dL (9-23); Carbon Dioxide 27 mmol/L (20-31); Chloride 106 mmol/L (98-107); Glucose 87 mg/dL (74-106); Potassium 3.5 mmol/L (3.5-5.1); Sodium 140 mmol/L (136-145); Total Protein 6.5 g/dL (5.7-8.2)
[2025-03-20 07:12] LABS: Bilirubin, Total 0.6 mg/dL (0.2-1.0)
[2025-03-20 07:13] LABS: Calcium 8.6 mg/dL (8.7-10.4)
[2025-03-20 08:00] VITALS: PULSE 67; PULSE 73; RESP 16; O2SAT 96
[2025-03-20 09:00] VITALS: BP 127/78; PULSE 71; RESP 16; TEMP 97.9; O2SAT 96
[2025-03-20] MEDS: LOSARTAN POTASSIUM 50 MG TAB PO SCH (10:00)
[2025-03-20] MEDS: CHOLECALCIFEROL (VITD3) 1,000UNIT=25mCg TAB PO SCH (10:06)
[2025-03-20] MEDS: CALCITRIOL 0.25 MCG CAP PO SCH (10:11)
[2025-03-20] MEDS: CALCIUM CARB 500 MG CHEW TAB PO SCH (10:12)
--- NOTE | 2025-03-20 12:41 | DVHDSRES ---
Discharge Summary Date of Admission Resident Creating Document: SANJU SHEPHERD RESIDENT Mar 17, 2025 at 21:45 Date of Discharge: Mar 20, 2025 Labs/Diagnostic Data: Laboratory Results Test 03/20/25 05:48 03/19/25 07:00 03/18/25 17:13 03/18/25 04:06 Sodium Level 140 mmol/L (136-145) Potassium Level 3.5 mmol/L (3.5-5.1) Chloride Level 106 mmol/L (98-107) Carbon Dioxide Level 27 mmol/L (20-31) Anion Gap 7 (5-15) Blood Urea Nitrogen 9 mg/dL (9-23) Creatinine 0.52 mg/dL (0.550-1.02) Glomerular Filtration Rate Calc 102 mL/min (>90) BUN/Creatinine Ratio 17.3 (10.0-20.0) Serum Glucose 87 mg/dL (74-106) Calcium Level 8.6 mg/dL (8.7-10.4) Total Bilirubin 0.6 mg/dL (0.2-1.0) Aspartate Amino Transferase (AST) 13 U/L (13-40) Alanine Aminotransferase (ALT) 10 U/L (7-40) Alkaline Phosphatase 92 U/L (46-116) Total Protein 6.5 g/dL (5.7-8.2) Albumin 4.4 g/dL (3.2-4.8) White Blood Count 8.0 10^3/uL (4.4-10.8) Red Blood Count 3.90 10^6/uL (4.0-5.20) Hemoglobin 12.3 g/dL (12.2-16.2) Hematocrit 35.6 % (36.0-46.0) Mean Corpuscular Volume 91.1 fL (80.0-100.0) Mean Corpuscular Hemoglobin 31.5 pg (28.0-32.0) Mean Corpuscular Hemoglobin Concent 34.6 g/dL (32.0-36.0) Red Cell Distribution Width 12.7 % (11.8-14.3) Platelet Count 241 10^3/uL (140-450) Mean Platelet Volume 8.1 fL (6.9-10.8) Neutrophils (%) (Auto) 67.0 % (37.0-80.0) Lymphocytes (%) (Auto) 22.4 % (10.0-50.0) Monocytes (%) (Auto) 6.0 % (0.0-12.0) Eosinophils (%) (Auto) 3.9 % (0.0-7.0) Basophils (%) (Auto) 0.7 % (0.0-2.0) Neutrophils # (Auto) 5.4 10 ^3/uL (1.6-8.6) Lymphocytes # (Auto) 1.8 10 ^3/uL (0.4-5.4) Monocytes # (Auto) 0.5 10 ^3/uL (0-1.3) Eosinophils # (Auto) 0.3 10 ^3/uL (0-0.8) Basophils # (Auto) 0.1 10 ^3/uL (0-0.2) Nucleated Red Blood Cells 0.0 % Parathyroid Hormone (Intact) 52.8 pg/mL (18.4-80.1) Triglycerides Level 54 mg/dL (< 150) Cholesterol Level 155 mg/dL (< 200) LDL Cholesterol 86 mg/dL (< 100) HDL Cholesterol 66 mg/dL (40-59) Thyroid Stimulating Hormone (TSH) 1.32 uIU/mL (0.55-4.78) Test 03/17/25 15:47 03/17/25 14:32 Troponin I High Sensitivity < 3 ng/L (</=34) B-Type Natriuretic Peptide 24.19 pg/mL (0-100) Other Laboratory Tests 03/20/25 05:48 03/19/25 07:00 Brief Hx & Hospital Course: 64-year-old female with a history of hypertension, well-controlled diabetes mellitus, osteoporosis, and hyperparathyroidism status post parathyroidectomy (February 2025) presented to the ED with her first episode of substernal chest pain described as electrical shock-like, radiating to the left shoulder, hands, and feet, accompanied by numbness, dizziness, and palpitations. She denied shortness of breath, nausea, or other associated symptoms. Symptoms began postoperatively, and she was advised by her surgeon to take calcium/magnesium supplements and seek ED evaluation if symptoms persisted. In the ED, she received aspirin and nitroglycerin with improvement in chest pain. EKG showed normal sinus rhythm; troponin was negative. Calcium level was 8.4 mg/dL. Chest X-ray revealed no acute cardiopulmonary disease. Cardiology evaluated her for arrhythmia and recommended outpatient event monitoring. Echocardiogram shows LVEF 68%, mild LVH, grade 1 diastolic dysfunction. She was advised to resume calcium carbonate and calcitriol for suspected hypocalcemia. Hypertension was stable; she was discharged in good condition with instructions to follow up with cardiology and primary care. On evaluation today, she states she is well, chest pain is manageable. Her vitals have remained stable for discharge home, follow up visit in discharge clinic. All medications and recommendations were thoroughly explained and the patient states she understands and agrees. Detailed discussion held with patient at bedside were all questions were answered and concerns were addressed. Operations or Procedures EXAM: XY CHEST PORTABLE Indication: chest pain Technique: Single frontal view of the chest was obtained Comparison: None FINDINGS: Lines and Tubes: None Lungs: No focal consolidation. Pleura: No effusion. No pneumothorax. Cardiomediastinal contours: Unremarkable Bones: No acute osseous abnormality. IMPRESSION: No acute cardiopulmonary disease. - EXAM: Two-dimensional and M-mode echocardiogram with Doppler and color Doppler. Blood Pressure: 109/71 mmHg INDICATION Atrial Fibrillation RISK FACTORS Height: 5'2", Weight: 165 DIMENSIONS LVDd 4.0 (3.8-5.7cm) LA (2D) 3.3 (1.9-4.0cm) Aortic Root 2.8 (2.0- 3.7cm) LVDs 2.7 (2.5-4.0cm) LA (MM) (1.9-4.0cm) Aortic Cusp Exc 1.8 (1.5- 2.0cm) EF (%) 60.0 (55-70%) Rt. Atrium 3.2 (1.9-4.0cm) Asc. Aorta cm IVSd 1.1 (0.7-1.1cm) RV (D) 3.1 (1.8-2.4cm) PWd 1.1 (0.7-1.1cm) Mitral Valve Mitral Mitral Stenosis E wave 0.57m/s MV Mean GR. mmHg A wave 0.92m/s MV Peak GR. mmHg E/A ratio 0.6 2D MVA cm2 DECEL Time 378ms PRESS 1/2 Time ms Aortic Valve Aortic Valve Aortic Stenosis V1 1.18m/s AO Mean GR. 5mmHg V2 1.68m/s AO Peak GR. 11mmHg LVOT Diameter 2.0 (1.8-2.4cm) Doppler CAROLE 2.21cm2 Pulmonic Valve V2 1.14m/s Tricuspid Valve TR Velocity 2.48m/s RVSP 28mmHg Conclusion lvef 65% mild LVH grade 1 diastolic dysfunction SIGNED BY: MYRTLE STEVENSON MD SIGNED DATE/TIME: 03/19/25 1207 - Condition at Discharge: Stable (RN) Final Diagnosis/Problems List # Chest pain ruled out ACS # Hx of Hyperparathyroidism s/p parathyroidectomy february 2025 # Palpitation r/o arrihythmia Discharge Disposition: Home Discharge Instruct/Medications Diet: Regular Activity: No Restrictions, As Tolerated Follow Up/Referral: Follow up with PCP within 1-2 weeks. Medications: Calcitriol 0.5 mcg daily PO and Cholecalciferol 2,000 unit daily PO continue home medications as per EMR Scheduled Calcitriol (Calcitriol), 1 CAP PO DAILY Cholecalciferol (Vitamin D-[address]), 2,000 UNIT PO DAILY Losartan Potassium (Losartan Potassium), 100 MG PO DAILY Magnesium Oxide (Magnesium Oxide), 1 TAB PO DAILY Discontinued Medications Calcitriol (Calcitriol), 1 CAP PO DAILY, (Reported) Discontinued Reason: Prescription changed Cholecalciferol (Vitamin D3), 1 CAP PO DAILY, (Reported) Discontinued Reason: Prescription changed Discharge Statement: "Patient was advised to return to the ER or call 911 if any headaches, dizziness, shortness of breath, chest pain, abdominal pain, bleeding, fevers, or worsening of medical condition. Patient was counseled about treatment plan, medications, possible side effects, patientverbalized understanding. All questions were answered to the best of my ability. This discharge took greater then 30 minutes in planning, reviewing documentation, counseling the patient, and discussing with other team members." ASSESSMENT ASSESSMENT Assessment # Chest pain r/o ACS # Hx of Hyperparathyroidism s/p parathyroidectomy february 2025 # Palpiration r/o arrihythmia Date of Service: Mar 20, 2025 Billing Provider: DENICE MAYFIELD MD Common Visit Codes: [id number] DISCH DAY >30min SANJU SHEPHERD RESIDENT Mar 20, 2025 12:41 ANUP STONER RESIDENT Mar 20, 2025 15:05 DENICE MAYFIELD MD Mar 20, 2025 17:55
[2025-03-20] MEDS ORDERED: CHOL20002 PO (13:01)
[2025-03-20] MEDS ORDERED: MAGN241.4 GT (13:01)
[2025-03-20] MEDS ORDERED: CALC0.5C PO ×2 (13:01→16:18)
[2025-03-20 13:22] VITALS: BP 130/80; PULSE 71; RESP 16; TEMP 97.9; O2SAT 97
[2025-03-20 14:42] VITALS: BP 118/81; PULSE 71; RESP 16; TEMP 36.6; O2SAT 97
[2025-03-20] MEDS ORDERED: MAGN400T40 PO (16:18)
[2025-03-20] MEDS ORDERED: LOSA-534 PO (16:18)
[2025-03-20] MEDS ORDERED: CALC-10 PO (16:18)
--- NOTE | 2025-03-21 14:33 | ECG ---
[facility] Test Date: 2025-03-17 Test Time: 14:09:42 Pat Name: NIRAV DRUMMOND Department: Room: 0245T B Gender: F Outreach Professional: JENNIFER : 1960 Requested By: JERICHO MILLAN Order Number: [id number] Reading MD: Raghavendra Brooke Measurements Intervals [place] Rate: 70 P: 38 [place]: 137 QRS: 62 QRSD: 96 T: 8 QT: 382 QTc: 413 Interpretive Statements Sinus rhythm Low voltage, precordial leads Minimal ST depression, inferior leads Electronically Signed On 03-21-2025 18:10:09 PDT by Raghavendra Brooke Please click the below link to view image of tracing.
--- NOTE | 2025-03-22 07:52 | ECG ---
[facility] Test Date: 2025-03-18 Test Time: 10:04:11 Pat Name: NIRAV DRUMMOND Department: Room: 0245T B Gender: F Home Service Consultant: : 1960 Requested By: ANUP STONER Order Number: [id number] Reading MD: Raghavendra Brooke Measurements Intervals [place] Rate: 76 P: 54 FL: 154 QRS: 57 QRSD: 92 T: 50 QT: 396 QTc: 445 Interpretive Statements Normal sinus rhythm Electronically Signed On 03-28-2025 22:07:35 PDT by Raghavendra Brooke Please click the below link to view image of tracing.
--- NOTE | 2025-03-23 07:21 | ECG ---
[facility] Test Date: 2025-03-18 Test Time: 10:05:21 Pat Name: NIRAV DRUMMOND Department: Room: 0245T B Gender: F Station Baggage Porter: : 1960 Requested By: SANJU YOU Order Number: [id number] Reading MD: Raghavendra Brooke Measurements Intervals [place] Rate: 75 P: 42 W[place]: 158 QRS: 57 QRSD: 94 T: 57 QT: 396 QTc: 442 Interpretive Statements Normal sinus rhythm Electronically Signed On 03-28-2025 22:08:58 PDT by Raghavendra Brooke Please click the below link to view image of tracing.
--- NOTE | 2025-03-23 07:21 | ECG ---
[facility] Test Date: 2025-03-18 Test Time: 10:04:52 Pat Name: NIRAV DRUMMOND Department: Room: 0245T B Gender: F Correctional Case Records Supervisor: : 1960 Requested By: SANJU YOU Order Number: [id number] Reading MD: Raghavendra Brooke Measurements Intervals [place] Rate: 77 P: 45 MT: 158 QRS: 59 QRSD: 94 T: 56 QT: 390 QTc: 441 Interpretive Statements Normal sinus rhythm Electronically Signed On 03-28-2025 22:08:54 PDT by Raghavendra Brooke Please click the below link to view image of tracing.
== END 2025-03-20 15:15 | disposition home or self-care (01) | DRG 206 ==
LOC: ER 14:00 → OVERFLOW 21:45 → TELE-EAST 03-18 21:20
PROVIDERS: ADMIT Internal Medicine Geriatric Medicine; ATTEND Internal Medicine Geriatric Medicine
DX: M94.0 Chondrocostal junction syndrome [Tietze] (principal); E87.6 Hypokalemia; I49.9 Cardiac arrhythmia, unspecified; E83.51 Hypocalcemia; E11.9 Type 2 diabetes mellitus without complications; I10 Essential (primary) hypertension; E66.9 Obesity, unspecified; Z68.30 Body mass index [BMI] 30.0-30.9, adult; Z80.1 Family history of malignant neoplasm of trachea, bronchus and lung; Z82.49 Family history of ischemic heart disease and other diseases of the circulatory system; Z83.511 Family history of glaucoma; Z90.711 Acquired absence of uterus with remaining cervical stump
CPT/HCPCS: 36415; 71045; 80048; 80053; 80061; 83880; 83970; 84443; 84484; 85025; 93005; 93306; G0378

== ENCOUNTER 2025-05-26 15:45 | Emergency (ER) | payer OTHER, MEDICAID ==
[~2025-05-26] VITALS: Ht 154.9 cm; Wt 78.1 kg
[~2025-05-26 15:45] MED LIST: CALC-10 PO; CALC0.5C PO; LOSA-534 PO; MAGN400T40 PO
--- NOTE | 2025-05-26 16:17 | ED.PDOC ---
HPI Comments This patient is a pleasant but morbidly obese 64 y/o F, with PMHx of HTN presents to the ED for CC of palpitations. Patient reports, that she recently received a parathyroidectomy and has been having palpations with associated chest pain following her procedure x3days. Patient describes, chest pain to be left-sided and to travel to her back. Patient further relays, that she was previous admitted for SS and has been following up with a stone derrickman and rigger. Patient denies nausea, vomiting, headache, dizziness, or faintness. No other symptoms or modifying factors are present at this time. Vital signs were stable on arrival. Chief Complaint: Chest Pain Time Seen by MD: 16:10 Reviewed Notes: Nurses Notes, Medications, Allergies Allergies: Coded Allergies: NO KNOWN ALLERGIES (Unverified , 03/17/25) Home Meds Active Scripts Magnesium Oxide (MAGNESIUM OXIDE) 400 Mg Tab, 1 TAB PO DAILY for 30 Days, #30 TAB 5 Refills Prov:ANUP STONER RESIDENT 03/20/25 Cholecalciferol (Vitamin D-[address]) 1,000 Unit Tab, 2000 UNIT PO DAILY for 30 Days, #60 TAB Prov:ANUP STONER [facility] 03/20/25 Calcitriol (Calcitriol) 0.5 Mcg Cap, 1 CAP PO DAILY for 30 Days, #90 CAP 1 Refill Prov:ANUP STONER [facility] 03/20/25 Losartan Potassium (Losartan Potassium) 50 Mg Tab, 100 MG PO DAILY for 30 Days, #60 TAB Prov:ANUP STONER RESIDENT 03/20/25 Information Source: Patient Mode of Arrival: Ambulatory Severity: Moderate Timing: Days Duration: Since onset Prehospital treatment: None Location: Substernal Quality: Sharp, Tightness Onset: At Rest Cardiac Risk Factors: HTN PE Risk Factors: None History of: None Associated Signs and Symptoms: Palpitations Past Medical History PAST MEDICAL HISTORY: HTN Surgical History: Hysterectomy STATION TENDER History: Denies all STATION TENDER Hx Family History Family History: Unknown Social History Smoker: Non-Smoker Alcohol: Denies ETOH Use Drugs: Denies Drug Use Lives In: Home Constitutional: denies: chills, diaphoresis, fatigue, fever, malaise, sweats, weakness, others EENTM: denies: blurred vision, double vision, ear bleeding, ear discharge, ear drainage, ear pain, ear ringing, eye pain, eye redness, hearing loss, mouth pain, mouth swelling, nasal discharge, nose bleeding, nose congestion, nose pain, photophobia, tearing, throat pain, throat swelling, voice changes, others Respiratory: denies: cough, hemoptysis, orthopnea, SOB at rest, shortness of breath, SOB with excertion, stridor, wheezing, others Cardiovascular: reports: chest pain, palpitations; denies: dizzy spells, diaphoresis, Dyspnea on exertion, edema, irregular heart beat, left arm pain, lightheadedness, PND, syncope, others Gastrointestinal: denies: abdomen distended, abdominal pain, blood streaked bowels, constipated, diarrhea, dysphagia, difficulty swallowing, hematemesis, melena, nausea, poor appetite, poor fluid intake, rectal bleeding, rectal pain, vomiting, others Genitourinary: denies: abnormal vagina bleeding, burning, dyspareunia, dysuria, flank pain, frequency, hematuria, incontinence, pain, , vagina discharge, urgency, others Neurological: denies: dizziness, fainting, headache, left sided numbness, left sided weakness, numbness, paresthesia, pre-existing deficit, right sided n umbness, right sided weakness, seizure, speech problems, tingling, tremors, weakness, others Musculoskeletal: denies: back pain, gout, joint pain, joint swelling, muscle pain, muscle stiffness, neck pain, others Integumetry: denies: bruises, change in color, change in hair/nails, dryness, laceration, lesions, lumps, rash, wounds, others Allergic/Immunocompromised: denies: Difficulty Healing, Frequent Infections, Hives, Itching, others Hematologic/Lymphatic: denies: anemia, blood clots, easy bleeding, easy bruising, swollen glands, others Endocrine: denies: excessive hunger, excessive sweating, excessive thirst, excessive urination, flushing, intolerance to cold, intolerance to heat, unexplained weight gain, unexplained weight loss, others Psychiatric: denies: anxiety, bipolar disorder, depression, hopeless, panic disorder, schizophrenia, sleepless, suicidal, others All Other Systems: Reviewed and Negative Physical Exam General Appearance: Mild Distress (Moderate distress due to anxiety related to her palpitation concerns.), Obese HEENT: Normal ENT Inspection, Pharynx Normal, TMs Normal Neck: Full Range of Motion, Non-Tender, Normal, Normal Inspection Respiratory: Chest Non-Tender, Lungs Clear, No Accessory Muscle Use, No Respiratory Distress, Normal Breath Sounds, Other (Unremarkable auscultation bilateral lung del ros[place].) Cardiovascular: No Edema, No JVD, No Murmur, No Gallop, Normal Peripheral Pulses, Regular Rate/Rhythm, Other (Unremarkable cardiac evaluation.) Breast Exam: Deferred Gastrointestinal: No Organomegaly, Non Tender, No Pulsatile Mass, Normal Bowel Sounds, Soft Genitalia: Deferred Pelvic: Deferred Rectal: Deferred Extremities: No calf tenderness, Normal capillary refill, Normal inspection, Normal range of motion, Non-tender, No pedal edema Neurologic: Alert Cerebellar Function: NOT DONE Reflexes: NOT DONE Skin: Dry, Normal Color, Warm Lymphatic: No Adenopathy Was a procedure done? Was a procedure done?: No CP Differential Dx Differential Diagnosis: Anxiety / Panic Attack, Sinus Tachycardia Differential Diagnosis: HTN Essential, HTN Accelerated Differential Diagnosis: Chest Wall Pain, Costochondritis, Esophageal reflux/spasm, Other (Sepsis, UTI) X-Ray, Labs, Meds, VS Vital Signs Date Time Temp Pulse Resp B/P (MAP) Pulse Ox O2 Delivery O2 Flow Rate FiO2 05/26/25 18:44 56 05/26/25 16:48 62 05/26/25 15:51 76 05/26/25 15:46 98.6 84 20 131/89 98 98.6 Lab Test 05/26/25 19:31 05/26/25 17:13 05/26/25 16:21 Range/Units Urine Color Light-yellow Yellow Urine Clarity Turbid H Clear Urine pH 6.0 5.0-9.0 Urine Specific [place] 1.017 1.001-1.035 Urine Protein Negative Negative Urine Ketones Negative Negative Urine Blood Negative Negative /uL Urine Nitrite Negative Negative Urine Bilirubin Negative Negative Urine Urobilinogen Normal Negative mg/dL Urine Leukocyte Esterase 3+ Negative /uL Urine RBC 5 0 - 4 /hpf Urine Microscopic WBC 47 H 0-5 /HPF Urine Squamous Epithelial Cells Few <5 /hpf Urine Bacteria Few H None Seen /hpf Urine Mucus Few None Seen Urine Glucose Normal Normal mg/dL Troponin I High Sensitivity < 3 L < 3 L </=34 ng/L White Blood Count 6.5 4.4-10.8 10^3/uL Red Blood Count 4.56 4.0-5.20 10^6/uL Hemoglobin 13.8 12.2-16.2 g/dL Hematocrit 41.4 36.0-46.0 % Mean Corpuscular Volume 90.9 80.0-100.0 fL Mean Corpuscular Hemoglobin 30.2 28.0-32.0 pg Mean Corpuscular Hemoglobin Concent 33.2 32.0-36.0 g/dL Red Cell Distribution Width 13.2 11.8-14.3 % Platelet Count 286 140-450 10^3/uL Mean Platelet Volume 7.2 6.9-10.8 fL Neutrophils (%) (Auto) 61.9 37.0-80.0 % Lymphocytes (%) (Auto) 30.3 10.0-50.0 % Monocytes (%) (Auto) 4.7 0.0-12.0 % Eosinophils (%) (Auto) 2.0 0.0-7.0 % Basophils (%) (Auto) 1.1 0.0-2.0 % Neutrophils # (Auto) 4.0 1.6-8.6 10 ^3/uL Lymphocytes # (Auto) 2.0 0.4-5.4 10 ^3/uL Monocytes # (Auto) 0.3 0-1.3 10 ^3/uL Eosinophils # (Auto) 0.1 0-0.8 10 ^3/uL Basophils # (Auto) 0.1 0-0.2 10 ^3/uL Nucleated Red Blood Cells 0.0 % Sodium Level 141 136-145 mmol/L Potassium Level 4.2 3.5-5.1 mmol/L Chloride Level 102 98-107 mmol/L Carbon Dioxide Level 30 20-31 mmol/L Anion Gap 9 5-15 Blood Urea Nitrogen 14 9-23 mg/dL Creatinine 0.59 0.550-1.02 mg/dL Glomerular Filtration Rate Calc 99 >90 mL/min BUN/Creatinine Ratio 23.7 H 10.0-20.0 Serum Glucose 81 74-106 mg/dL Calcium Level 9.8 8.7-10.4 mg/dL X-Ray, Labs, Meds, VS Comment All studies performed the ED were evaluated by me personally. Serum studies were unremarkable for any systemic concerns including unremarkable cardiac markers. EKG revealed a sinus rhythm with a rate of 76. Low voltage in the precordial leads was noted as well as minimal ST depression in diffuse leads. IL interval 156 and QT interval of 381. Unremarkable EKG. Urinalysis confirmed a significant urinary tract infection. Advised patient utilize antibiotics as directed until completion. Patient will be given 1st dose of antibiotics tonight before leaving the campus. Time of 1ST Reevaluation: 20:02 Reevaluation 1ST: Improved Consultation: PCP Patient Education/Counseling: Diagnosis, Treatment Family Education/Counseling: Diagnosis, Treatment, No Family Present SEPSIS Sepsis Screen Date sepsis recognized/suspect: May 26, 2025 Time Sepsis recognized/suspect: 1546 Recent Procedure: No On Antibiotic Therapy: No Respiratory Rate >20: No Heart Rate >90: No Temp<36 C (96.8 F) or >38.3 C: No SBP <90 or MAP <65 mmHG: No New Acute Mental Status Change: No Is the patient on CPAP, BIPAP,: No Physician Orders Sulfamethoxazole W/Trimeth Tab (Bactrim (05/26/25 20:00) Vital Signs Date Time Temp Pulse Resp B/P (MAP) Pulse Ox O2 Delivery O2 Flow Rate FiO2 05/26/25 18:44 56 05/26/25 16:48 62 05/26/25 15:51 76 05/26/25 15:46 98.6 84 20 131/89 98 98.6 Laboratory Tests Test 05/26/25 16:21 White Blood Count 6.5 10^3/uL (4.4-10.8) Departure 1 Departure Time of Disposition: 20:02 Impression: Primary Impression: Chest pain Additional Impression: Urinary tract infection Disposition: HOME / SELF CARE / HOMELESS Condition: Stable Additional Instructions: Advised patient utilize antibiotics as directed until completion. Patient should continue follow up appointments as scheduled with her stone derrickman and rigger assess her continued chest pain concerns. e-Prescriptions Acetaminophen (Acetaminophen) 500 Mg Tab 500 MG PO Q4HP PRN, #20 TAB Prov: JUDY GOODMAN PAC 05/26/25 Sulfamethoxazole W/Trimethopri (Bactrim Ds Tablet) 1 Tab Tb 1 TAB PO BID for 7 Days, #14 TAB Prov: JUDY GOODMAN PAC 05/26/25 Discharged With: Self, Friend Critical Care Note Critical Care Time?: No Stability Stability form required: No Heart Score Heart Score: Heart Score Response (Comments) Value History Slightly Suspicious 0 EKG Repolarization Disturb 1 Age >65 2 Risk Factors 1 or 2 risk factors 1 Troponin Normal limit 0 Total 4 I personally scribed for JUDY GOODMAN PAC ([email or web address]) on 05/26/25 at 16:17. Electronically submitted by Cindy Vivar ([email or web address]). I personally scribed for JUDY GOODMAN PAC ([email or web address]) on 05/26/25 at 16:20. Electronically submitted by Cindy Vivar ([email or web address]). JUDY GOODMAN PAC May 26, 2025 16:17
[2025-05-26 16:30] LABS: Hematocrit 41.4 % (36.0-46.0); Hemoglobin 13.8 g/dL (12.2-16.2); Mean Corpuscular Hemoglobin 30.2 pg (28.0-32.0); Mean Corpuscular Volume 90.9 fL (80.0-100.0); Nucleated Red Blood Cells % 0.0 %
[2025-05-26 16:38] LABS: Chloride 102 mmol/L (98-107); Potassium 4.2 mmol/L (3.5-5.1); Sodium 141 mmol/L (136-145)
[2025-05-26 16:39] LABS: Anion Gap 9 (5-15); Calcium 9.8 mg/dL (8.7-10.4); Carbon Dioxide 30 mmol/L (20-31)
[2025-05-26 16:44] LABS: BUN/Creatinine Ratio 23.7 (10.0-20.0); Blood Urea Nitrogen 14 mg/dL (9-23); Glucose 81 mg/dL (74-106)
--- NOTE | 2025-05-26 18:25 | ECG ---
[facility] Test Date: 2025-05-26 Test Time: 15:51:01 Pat Name: NIRAV DRUMMOND Department: ED Room: Gender: F Director Of Agriculture: ER : 1960 Requested By: JUDY GOODMAN Order Number: [id number] Reading MD: Measurements Intervals [place] Rate: 76 P: 42 SD: 156 QRS: 50 QRSD: 97 T: 11 QT: 381 QTc: 429 Interpretive Statements Sinus rhythm Low voltage, precordial leads Minimal ST depression, diffuse leads Please click the below link to view image of tracing.
--- NOTE | 2025-05-26 18:25 | ECG ---
[facility] Test Date: 2025-05-26 Test Time: 16:46:40 Pat Name: NIRAV DRUMMOND Department: ED Room: Gender: F Certified Ophthalmic Assistant: LARRY : 1960 Requested By: JUDY GOODMAN Order Number: [id number] Reading MD: Measurements Intervals [place] Rate: 62 P: 44 NM: 154 QRS: 58 QRSD: 97 T: 26 QT: 380 QTc: 386 Interpretive Statements Sinus rhythm Low voltage, precordial leads Consider RVH or posterior infarct Baseline wander in lead(s) II Please click the below link to view image of tracing.
--- NOTE | 2025-05-26 18:44 | ECG ---
[facility] Test Date: 2025-05-26 Test Time: 18:42:00 Pat Name: NIRAV DRUMMOND Department: ED Room: Gender: F Air Intelligence Officer: ELLIOTT : 1960 Requested By: JUDY GOODMAN Order Number: [id number] Reading MD: Measurements Intervals [place] Rate: 56 P: 46 [place]: 152 QRS: 63 QRSD: 99 T: 33 QT: 392 QTc: 379 Interpretive Statements Sinus rhythm Low voltage, precordial leads Please click the below link to view image of tracing.
[2025-05-26 19:54] LABS: Urine Protein, UAD Negative (Negative)
[2025-05-26] MEDS ORDERED: SULFAMETHOX W/TRIMETH(800/160MG) DS TAB PO ONE (20:00)
[2025-05-26] MEDS ORDERED: BACDST PO (20:03)
[2025-05-26] MEDS ORDERED: ACET500T58 PO (20:03)
[2025-05-26 20:21] VITALS: BP 165/90; PULSE 74; RESP 18; TEMP 98.1; O2SAT 97
== END 2025-05-26 20:28 | disposition home or self-care (01) ==
LOC: ER 15:45
DX: R07.89 Other chest pain (principal); N39.0 Urinary tract infection, site not specified; I10 Essential (primary) hypertension; E66.01 Morbid (severe) obesity due to excess calories; Z79.899 Other long term (current) drug therapy; Z90.710 Acquired absence of both cervix and uterus; Z68.32 Body mass index [BMI] 32.0-32.9, adult
CPT/HCPCS: 36415; 80048; 81001; 84484; 85025; 93005